=== PATIENT | female | born 1990 | race Caucasian/White ===

== ENCOUNTER 2023-09-08 21:07 | Emergency (ER) | payer SELFPAY | END 2023-09-08 23:19 | disposition home or self-care (01) | LOC: JD.ED 21:07 | DX: S90.31XA Contusion of right foot, initial encounter (principal); Z88.1 Allergy status to other antibiotic agents; X50.9XXA Other and unspecified overexertion or strenuous movements or postures, initial encounter | CPT/HCPCS: 73630-26-RT; 73630-RT; 99282; 99283 ==